=== PATIENT | female | born 1985 | race Caucasian/White ===

== ENCOUNTER 2024-03-31 06:14 | Day surgery (SDC) | payer OTHER ==
[~2024-03-31] VITALS: Ht 167.6 cm; Wt 70.8 kg
[2024-03-31] MEDS ORDERED: fentaNYL citrate 0.05 MG/ML VIAL ONE (07:22)
[2024-03-31] MEDS ORDERED: MIDAZOLAM 5 MG/5 ML VIAL ONE (07:22)
[2024-03-31] MEDS: MIDAZOLAM 5 MG/5 ML VIAL IV ONE (07:37)
[2024-03-31] MEDS: fentaNYL citrate 0.05 MG/ML VIAL IVP ONE (07:39)
[2024-03-31] MEDS: LIDOCAINE 2% 100 MG/5 ML UJET TP ONE (07:44)
[2024-03-31] MEDS ORDERED: diphenhydrAMINE 50 MG/ML VIAL ONE (08:02)
[2024-03-31] MEDS: diphenhydrAMINE 50 MG/ML VIAL IVP ONE (10:32)
== END 2024-03-31 10:05 | disposition home or self-care (01) ==
LOC: MDS 06:14 → MMU 06:16 → MDS 10:05
PROVIDERS: ATTEND Surgery
DX: K57.32 Diverticulitis of large intestine without perforation or abscess without bleeding (principal); K59.00 Constipation, unspecified; Z98.51 Tubal ligation status; Z98.890 Other specified postprocedural states
CPT/HCPCS: 45378; J1200; J2250; J3010